=== PATIENT | female | born 2005 ===

== ENCOUNTER 2024-12-16 16:12 | Emergency (ER) | payer OTHER, SELFPAY ==
--- NOTE | 2024-12-16 16:19 | ED.GENADULT ---
HPI - General Adult General Time Seen by Provider: 16:35 Date Seen: 12/16/24 Chief complaint: Vaginal Bleeding Stated complaint: Not clotting during cycles Time Seen by Provider: 12/16/24 16:15 Source: patient, RN notes reviewed and old records reviewed Mode of arrival: ambulatory Limitations: no limitations History of Present Illness HPI narrative: 19-year-old female who comes in today with heavy vaginal bleeding. Patient knows she started having heavy bleeding this morning with clots. Some low abdominal cramping as well. She denies possibility of . She had a Mirena IUD removed one week ago due to ?high hormone levels. ? Says she has some lightheadedness, no shortness of breath. Related Data Home Medications ?Medication ?Instructions ?Recorded ?Confirmed bupropion HCl 100 mg tablet 200 mg PO BID 12/16/24 12/16/24 sertraline 50 mg tablet 50 mg PO DAILY 12/16/24 12/16/24 Allergies Allergy/AdvReac Type Severity Reaction Status Date / Time Latex, Natural Rubber Allergy Unknown Hives Verified 12/16/24 16:20 [facility] Social History Smoking Status: Current every day smoker What tobacco products do you use: cigarettes Do you use any of these nicotine containing products: Vaping Products How often do you have a drink containing alcohol: 2-3 times a week AUDIT-C Alcohol total score: 3 Non-prescribed substance use: marijuana (any form) Non-prescribed substance use details: thc once a week Exam Narrative: Exam Narrative: General: Well-developed and well-nourished, no acute distress Head: Atraumatic and normocephalic Eyes: Pupils are equal reactive, extraocular motions intact, conjunctiva clear ENT: External nose and ears are normal, posterior pharynx without erythema or exudate Neck: No midline cervical tenderness, full spontaneous range of motion the neck, trachea midline, no adenopathy Heart: Regular rate and rhythm no murmurs or thrills Lungs: Clear to auscultation bilaterally without wheezes or crackles Abdomen: Soft, nontender, nondistended with active bowel sounds Musculoskeletal: No tenderness, deformity, or edema Neurologic: Awake, alert, and oriented x3, no gross focal neurologic deficits, cranial nerves intact as tested Psych: Mood and affect are appropriate Skin: No rashes Const: Vital Signs, click to edit/add: Vital Signs - 24 hr 12/16/24 16:23 12/16/24 18:22 Temperature 98.0 F 97.4 F L Pulse Rate [Pulse Oximeter] 83 94 Respiratory Rate 18 18 Blood Pressure [Ri ght Upper Arm] 119/81 114/76 Pulse Oximetry 97 98 Oxygen Delivery Me thod Room Air Room Air Course Course ED Course: Reviewed most recent bottling supervisor note from December 06 wound patient had an IUD removed due to concern for irregular spotting and weight gain. Thyroid testing at that time was normal. Patient presents today with heavy vaginal bleeding today. IUD removal about a week ago. Reports that her ?progesterone estrogen levels were high and that is why the IUD was removed. Patient with heavy bleeding with some clots today, some abdominal cramping as well. Says she has had some lightheadedness as well. On exam here, patient has no tachycardia, hypotension, does not appear pale, minimal abdominal tenderness. Suspect hormone withdrawal bleeding, labs and ultrasound ordered, pelvic exam will be performed. Reevaluation(s) Time of Reevaluation #1: 18:02 Reevaluation #1: Patient recheck, says bleeding is about the same as the ones initially. Chaperoned pelvic exam is performed, small amount of dried blood in the vaginal vault, trickle of dark blood from the os. Time of Reevaluation #2: 18:23 Reevaluation #2: Labs independently interpreted by me with hemoglobin 12.9 which is normal. Ultrasound independently interpreted by me with endometrial thickening at 1.2 mm. Time of Reevaluation #3: 19:09 Reevaluation #3: Updated patient with findings and plan, waiting for call back from bottling supervisor. 19:[address] Obrien, no further recommendations at this time and patient is stable for discharge. Patient is up and ambulatory in the department, remains finally stable. Vital Signs Vital signs: Initial Vital Signs Temperature 98.0 F 12/16/24 16:23 Temperature Source Temporal Artery Scan 12/16/24 16:23 Pulse Rate 83 12/16/24 16:23 Pulse Rhythm Regular 12/16/24 16:23 Respiratory Rate 18 12/16/24 16:23 Blood Pressure 119/81 12/16/24 16:23 Blood Pressure Mean 93 12/16/24 16:23 Blood Pressure Position Sitting 12/16/24 16:23 Pulse Oximetry 97 12/16/24 16:23 Oxygen Delivery Method Room Air 12/16/24 16:23 Vital Signs Temperature 98.0 F 12/16/24 16:23 Pulse Rate 83 12/16/24 16:23 Respiratory Rate 18 12/16/24 16:23 Blood Pressure 119/81 12/16/24 16:23 Pulse Oximetry 97 12/16/24 16:23 Oxygen Delivery Method Room Air 12/16/24 16:23 Temperature 97.4 F L 12/16/24 18:22 Pulse Rate 94 12/16/24 18:22 Respiratory Rate 18 12/16/24 18:22 Blood Pressure 114/76 12/16/24 18:22 Pulse Oximetry 98 12/16/24 18:22 Oxygen Delivery Method Room Air 12/16/24 18:22 Medical Decision Making Lab Data Labs: Lab Results 12/16/24 Range/Units 18:10 WBC 8.35 (4.50-11.00) K/uL RBC 4.34 (4.00-5.20) m/uL Hgb 12.9 (12.0-16.0) gm/dL Hct 39.3 (33.0-51.0) % MCV 91 (80-100) fL MCH 30 (26-34) pg MCHC 33 (32-36) gm/dL RDW Coeff of [place] 12.2 (11.5-15.5) % Plt Count 273 (140-440) K/uL Neut % (Auto) 64.8 (42.0-72.0) % Lymph % (Auto) 24.4 (20-44) % Edwards % (Auto) 8.6 (0.0-11.0) % Eos % (Auto) 1.9 (0.0-7.0) % Baso % (Auto) 0.2 (0.0-3.0) % Neut # (Auto) 5.40 (1.7-7.0) K/uL Lymph # (Auto) 2.04 (0.90-2.90) K/uL Edwards # (Auto) 0.70 (0.00-0.90) K/UL Eos # (Auto) 0.16 (0.00-0.50) K/uL Baso # (Auto) 0.02 (0.00-0.30) K/uL Abs Immat Gran (auto) 0.01 (0.00-0.30) K/uL Imm/Tot Granulo (auto) 0.1 % Discharge Plan Discharge Clinical Impression: Vaginal bleeding Patient Disposition: Home, Self-Care Condition: Stable Instructions: Abnormal (Dysfunctional) Uterine Bleeding (ED) Additional Instructions: Vaginal bleeding today is due to hormone withdrawal from having the IUD removed. This will get better over the next couple of days. You may take Tylenol or ibuprofen to help with abdominal pain and cramping. Call your OBGYN tomorrow to discuss further evaluation and treatment. Activity Level: Activity as Tolerated Discharge Diet: Regular Prescriptions: No Action bupropion HCl 100 mg tablet 200 mg PO BID sertraline 50 mg tablet 50 mg PO DAILY Follow Up/Referrals: Provider,Not a Local [Primary Care Provider] - Stand Alone Forms: Done In :60 Seconds Info Instructions
[2024-12-16 16:23] VITALS: BP 119/81; PULSE 83; RESP 18; TEMP 36.7; O2SAT 97; BMI 29.3
--- NOTE | 2024-12-16 16:40 | CRLHL7_ITS ---
For Patients: As a result of the Century Cures Act, medical imaging exams and procedure reports are released immediately into your electronic medical record. You may view this report before your referring provider. If you have questions, please contact your health care provider. INDICATION: Heavy bleeding after IUD removal. TECHNIQUE: Ultrasound pelvis transvaginal for better assessment or to better visualize the endometrium. Real-time sonographic images with spectral and color Doppler imaging of the ovaries were obtained. COMPARISON: None. FINDINGS: Uterus: 6.8 x 3.0 x 3.4 cm. Thin band of echogenicity extending from the endometrium into the anterior fundal myometrium. Otherwise normal echotexture of the myometrium. No masses. Endometrium: Transvaginal imaging was performed to better evaluate the endometrium. Endometrial thickness measures 1 mm. No sign of endometrial mass or fluid. Right ovary measures 2.5 x 1.5 x 1.5 cm. Left ovary measures 3.5 x 2.1 x 3.2 cm. No ovarian or adnexal masses. Normal arterial and venous blood flow is demonstrated in both ovaries. Cul-de-sac: No significant free fluid. IMPRESSION: Thin band of echogenicity extending from the endometrium into the anterior fundal myometrium, possibly scar tissue/sequela of prior trauma. Otherwise, unremarkable pelvic ultrasound. Normal endometrial stripe thickness. Dictated by Jonny Holbrook MD @ 12/16/2024 6:44:03 PM (Electronically Signed)
--- OUTSIDE RECORDS SUMMARY | 2024-12-16 18:03 | XMS_ITS | Clinical Summary ---
Author Organization [employer] [facility] Address [address] [place] [id number] Care Team Providers Care Mold Finisher Name Role Phone Pcp, No Primary Care Provider Unavailabl e Allergies No known active allergies Medications Hospital, Clinic, or Other Facility Administered Medication Ordered Dose Route Frequency Start Date End Date Status levonorgestrel (MIRENA) 20 mcg/24 hours (8 yrs) 52 mg intrauterine device (IUD) 1 DeviceIndications:Enc ounter for IUD insertion 1 Device IU Q 8 YEARS 11/26/2023 12/06/2024 Discontinued Encounters Date Type Department Care Team Description 12/06/2024 1:20 PM CDT Office Visit [address] [address] Edita Del Rosario, ENRIQUE Billiard Player Exam (IUD Removal) 12/06/2024 Travel from Last 3 Months Social History Tobacco Use Types Packs/Day Years Used Date Smoking Tobacco: Never Smokeless Tobacco: Never Tobacco Cessation:Counseling Given: Not Answered Alcohol Use Standard Drinks/Week Comments Yes 0 (1 standard drink = 0.6 oz pur e alcohol) moderate PHQ-2 Answer Date Recorded PHQ-2 TOTAL SCORE 2 11/26/2023 Social Connections Answer Date Recorded Do you often feel lonely or isolated from those around you? 0 12/06/2024 Financial Resource Strain Answer Date R ecorded Difficulty of Paying Living Expenses 3 12/06/2024 Difficulty of Paying Living Expenses Not on file 12/06/2024 Food Insecurity Answer Date Recorded Do you worry your food will run out before you are able to buy more? 1 12/06/2024 Transportation Needs Answer Date Record ed Does lack of transportation keep you from medica l appointments? 1 12/06/2024 Does lack of transportation keep you from work, meetings or getting things that you need? 1 12/06/2024 Housing Stability Answer Date Recorded What is your housing situation today? 1 12/06/2024 Utilities Answer Date Recorded Do you have trouble paying f or utilities (for example, heat, electricity, water, phone)? 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 Gender Identity Not on file Sexual Orientation Not on file Obstetrics History Para Term AB IAB SAB Ectopic Multiple Livin g Live Births 0 0 0 0 0 0 0 0 0 0 0 Last Filed Vital Signs Vital Sign Reading Time Taken Comments Blood Pressure 104/72 12/06/2024 1:25 PM CDT Pulse 82 12/06/2024 1:25 PM CDT Temperature - - Respiratory Rate - - Oxygen Saturation - - Inhaled Oxygen Concentration - - Weight 88.5 kg (195 lb) 12/06/2024 1:25 PM CDT Height 175.3 cm (5' 9) 12/06/2024 1:25 PM CDT Body Mass Index 28.8 12/06/2024 1:25 PM CDT Plan of Treatment Health Maintenance Due Date Last Done Comments Tdap 2014 HIV for age 15-65 2018 HPV series for age 9-26 (1 - 3-dose series) 2018 Chlamydia for age 16-24 2019 Hepatitis C screening for ag e 18-79 2021 Tetanus booster 2023 Pap test for age 21-65 02/24/2024 COVID-19 vaccine series ( season) 2024 Depression screening for age 12+ 11/25/2024 11/26/2023 Influenza Vaccine (Season Ended) 2025 BMI (ht and wt on same day) for age 18+ 12/06/2025 12/06/2024, 11/26/2023 Meningococcal series for age 11-21 Aged Out No longer eligible b ased on patient's age to complete this topic Pneumococcal series for age 6-49 Aged Out No longer eligible b ased on patient's age to complete this topic Procedures Procedure Name Priority Date/Time Associated Diagnosis Comments TSH Routine 12/06/2024 1:52 PM CDT Overweight (BMI 25.0-29.9) Family history of thyroid disease Weight gain T4,FREE Routine 12/06/2024 1:52 PM CDT Overweight (BMI 25.0-29.9) Family history of thyroid disease Weight gain THYROPEROXIDASE ANTIBODY Routine 12/06/2024 1:52 PM CDT Overweight (BMI 25.0-29.9) Family history of thyroid disease Weight gain from Last 3 Months Results * TSH (12/06/2024 1:52 PM CDT) TSH 2.35 mIU/L [facility] Comment: Reference Range > or = 20 Years 0.40-4.50 Ranges First trimester 0.26-2.66 Second trimester 0.55-2.73 Third trimester 0.43-2.91 Blood BLOOD SPECIMEN / Unknown 12/06/2024 1:52 PM CDT 12/06/2024 1:53 PM CDT Edita Del Rosario CNM CHEMISTRY Final Resu lt Performing Organization Address City/[facility]/ZIP Co de Phone Number [email or web address] [facility] [address] [place] [address], [facility] [address] [place] [address] * THYROPEROXIDASE ANTIBODY (12/06/2024 1:52 PM CDT) THYROID PEROXIDASE ANTIBODIES 1 <9 IU/mL [facility] Blood BLOOD SPECIMEN / Unknown 12/06/2024 1:52 PM CDT 12/06/2024 1:53 PM CDT Edita Del Rosario CNM SEND OUTS Final Resu lt [facility] [address] [facility] [address], [place] [phone] [facility] [address] [facility] [place] [address] * T4,FREE (12/06/2024 1:52 PM CDT) T4, FREE 0.9 0.8 - 1.8 ng/dL [facility] Blood BLOOD SPECIMEN / Unknown 12/06/2024 1:52 PM CDT 12/06/2024 1:53 PM CDT Edita MCGOVERN CHEMISTRY Final Resu lt [email or web address] [facility] [address] [facility] [place] [address], [place] [phone] [facility] [address] [facility] [address] from Last 3 Months Insurance [facility] Care Teams Mold Finisher Relationship Specialty Start Date End Date Pcp, No . PCP - General 11/26/23
[2024-12-16 18:20] LABS: Basophils Absolute Auto 0.02 K/uL (0.00-0.30); Basophils Percent Auto 0.2 % (0.0-3.0); Eosinophils Absolute Auto 0.16 K/uL (0.00-0.50); Eosinophils Percent Auto 1.9 % (0.0-7.0); Hematocrit 39.3 % (33.0-51.0); Hemoglobin* 12.9 gm/dL (12.0-16.0); Immature Granulocytes Abs Auto 0.01 K/uL (0.00-0.30); Immature Granulocytes Pct Auto 0.1 %; Lymphocytes Absolute Auto 2.04 K/uL (0.90-2.90); Lymphocytes Percent Auto 24.4 % (20-44); Mean Corpuscular HGB Conc 33 gm/dL (32-36); Mean Corpuscular Hemoglobin 30 pg (26-34); Mean Corpuscular Volume 91 fL (80-100); Monocytes Percent Auto 8.6 % (0.0-11.0); Neutrophils Percent Auto 64.8 % (42.0-72.0); Platelet Count* 273 K/uL (140-440); RDW Coefficient of Variation % 12.2 % (11.5-15.5); Red Blood Count 4.34 m/uL (4.00-5.20); White Blood Count* 8.35 K/uL (4.50-11.00)
[2024-12-16 18:21] LABS: Slide Review Reflex No
[2024-12-16 18:22] VITALS: BP 114/76; PULSE 94; RESP 18; TEMP 36.3; O2SAT 98
== END 2024-12-16 19:24 | disposition home or self-care (01) ==
PROVIDERS: Emergency Provider Family Medicine
DX: N93.9 Abnormal uterine and vaginal bleeding, unspecified (principal)
CPT/HCPCS: 36415; 76830; 85025; 99283; 99285